=== PATIENT | male | born 1960 | race Caucasian/White ===

== ENCOUNTER 2016-09-01 17:55 | Inpatient (IN) | payer MEDICARE ==
[~2016-09-01] VITALS: Ht 172.7 cm; Wt 104.5 kg
[2016-09-01] MEDS ORDERED: NS 1,000 ML IV SCH (18:00)
[2016-09-01] MEDS ORDERED: LORazepam 2 MG/ML VIAL (J2060) IV STA ×6 (18:09→22:39)
[2016-09-01] MEDS ORDERED: ONDANSETRON 4MG/2ML VIAL (J2405) IV ONE (18:15)
[2016-09-01 18:35] LABS: BASO # 0.1 K/mm3 (0.0-0.2); BASO % 0.4 % (0.0-1.0); EOS # 0.2 K/mm3 (0.0-0.50); LARGE UNSTAINED CELL # 0.2 K/mm3 (0.0-0.4); LARGE UNSTAINED CELL % 1.4 % (0.0-4.0); LYMPH # 2.8 K/mm3 (1.5-4.5); LYMPH % 17.3 % (24.0-44.0); MEAN CORPUSCULAR HEMOGLOBIN 31.9 pg (27.0-33.0); MEAN CORPUSCULAR HGB CONC 33.4 g/dl (32.0-36.5); MEAN CORPUSCULAR VOLUME 95.6 fl (80.0-96.0); MONO # 0.9 K/mm3 (0.0-0.8); MONO % 5.4 % (0.0-5.0); NEUTROPHILS # 12.1 K/mm3 (1.8-7.7); NEUTROPHILS % 74.3 % (36.0-66.0); PLATELET COUNT, AUTOMATED 308 k/mm3 (150-450); WHITE BLOOD COUNT 16.3 K/mm3 (4.0-10.0)
[2016-09-01 19:11] LABS: ALBUMIN 4.3 GM/DL (3.2-5.2); ALBUMIN/GLOBULIN RATIO 1.26 (1.00-1.93); ALKALINE PHOSPHATASE 95 U/L (45-117); ALT/SGPT 29 U/L (12-78); ANION GAP 14 MEQ/L (8-16); AST/SGOT 17 U/L (15-37); BILIRUBIN,DIRECT 0.1 MG/DL (0.0-0.2); BILIRUBIN,TOTAL 0.5 MG/DL (0.2-1.0); BLOOD UREA NITROGEN 22 MG/DL (7-18); CALCIUM LEVEL 9.3 MG/DL (8.5-10.1); CARBON DIOXIDE LEVEL 23 MEQ/L (21-32); CHLORIDE LEVEL 107 MEQ/L (98-107); CREATININE FOR GFR 1.34 MG/DL (0.70-1.30); GLOMERULAR FILTRATION RATE 58.3 (>56); GLUCOSE, FASTING 132 MG/DL (70-105); POTASSIUM SERUM 3.6 MEQ/L (3.5-5.1); SODIUM LEVEL 144 MEQ/L (136-145); TOTAL PROTEIN 7.7 GM/DL (6.4-8.2)
[2016-09-01] MEDS ORDERED: CLON1TAB (19:12)
[2016-09-01] MEDS ORDERED: ATOR1TAB18 (19:12)
[2016-09-01] MEDS ORDERED: VERA24TASA (19:12)
[2016-09-01] MEDS ORDERED: PERC10TA17 (19:12)
[2016-09-01] MEDS ORDERED: FENT100D25 (19:12)
[2016-09-01] MEDS ORDERED: LISI40TAB (19:12)
[2016-09-01] MEDS ORDERED: METF500T (19:12)
[2016-09-01] MEDS ORDERED: PARO20TA3 (19:12)
[2016-09-01] MEDS ORDERED: OXYC10TA12 (19:12)
[2016-09-01] MEDS ORDERED: TRIA37.53 (19:12)
[2016-09-01] MEDS ORDERED: [UNRECOGNIZED DRUG - CODE] (19:12)
[2016-09-01 20:12] LABS: METHADONE URINE NEGATIVE (NEGATIVE)
[2016-09-01] MEDS ORDERED: HumaLOG INSULIN (NovoLOG) PER UNIT SC SCH (21:00)
[2016-09-01] MEDS ORDERED: PIPERACILLIN/TAZOBACTAM SOD 3.375 GM in D5W MINI-BAG PLUS 50 ML IV ONE (21:15)
[2016-09-01] MEDS ORDERED: HEPARIN SOD (PORCINE) 5000 UNITS/ML VIAL SQ SCH (22:00)
[2016-09-01] MEDS ORDERED: ACETAMINOPHEN TAB 650MG DOSE (2X325MG) PO PRN (22:45)
[2016-09-01] MEDS ORDERED: BISACODYL 5 MG TAB PO PRN (22:45)
[2016-09-01] MEDS ORDERED: LORazepam 2 MG/ML VIAL (J2060) IV PRN (22:45)
[2016-09-01] MEDS ORDERED: ONDANSETRON 4MG/2ML VIAL (J2405) IV PRN (22:45)
[2016-09-01] MEDS: HEPARIN SOD (PORCINE) 5000 UNITS/ML VIAL SC SCH (22:47)
[2016-09-01] MEDS ORDERED: GLUCOSE 4 GM CHEW TABLET PO PRN (23:30)
[2016-09-01] MEDS ORDERED: DEXTROSE 50% 50 ML SYRINGE IV PRN (23:30)
[2016-09-01] MEDS ORDERED: GLUCAGON FOR INJ 1 MG VIAL (J1610) SC PRN (23:30)
[2016-09-02] MEDS: NS 1,000 ML IV SCH ×2 (00:41→09:27)
[2016-09-02 00:51] VITALS: BP 140/81
--- NOTE | 2016-09-02 02:27 | HPE ---
DATE OF ADMISSION: 09/01/2016 PRIMARY CARE PROVIDER: Dr. Randall in [place]. ORTHOPEDICS: Dr. Buchanan in [place]. CHIEF COMPLAINT: Metabolic encephalopathy. CODE STATUS: Cannot obtain due to altered mental status. HISTORY OF PRESENT ILLNESS: Mr. Stevens is a 56-year-old male with multiple past medical history, who was brought to the emergency room (ER) due to metabolic encephalopathy as well as agitation. Due to altered mental status, patient was not able to provide history; however, the history was obtained from the patient's daughter (Meggan Stevens [phone]) and her friend (Elyssa [phone]). Patient has been using opiate pain medications for past 15 years due to bilateral ankle pain secondary to surgery. he and his daughter live in [place]. They were driving to [employer] to lease picker daughter's friend to go to baby shower. Daughter's friend expressed that when they came to pick her up, patient was awake and oriented; however, patient became more drowsy and sleepy. Patient's daughter gave him one dose of naloxone because she thought that patient overdosed his opiate medication. An hour and 30 minutes After taking naloxone patient is started to have agitation and altered mental status and when they stopped in a gas station, patient went to the bathroom and had two episodes of vomiting and that was the time that the daughter called emergency medical driver (EMT). They also noticed that when patient was walking back towards the car he had another episode of vomiting which contained undigested food however did not see abnormal color or blood. Patient laid down on the ground and that was the time that EMT found him. They checked the glucose level and it was 134 and patient was brought to the emergency department (ED). At the ED, patient had urine oxycodone she done which was positive for opiates. Poison control was consulted who recommended continuation of benzodiazepine usage for agitation. Patient received a total of 6 mg of Ativan at the ER. ALLERGIES: No known drug allergies. PAST MEDICAL HISTORY: 1. Diabetes mellitus type 2. 2. Hypertension. 3. Bilateral ankle fracture. 4. Tonsillitis. 5. Hypercholesterolemia. 6. Hypertension. 7. Obesity. PAST SURGICAL HISTORY: 1. Bilateral ankle repair with hardware 15 years ago. 2. Tonsillectomy. HOME MEDICATIONS: - atorvastatin calcium 40 mg daily - clonazepam 1 mg twice a day as needed for agitation - fentanyl 100 mcg every 72 hours - hydrochlorothiazide with triamterene one capsule daily - lisinopril 40 mg daily - metformin 1000 mg twice a day - oxycodone 30 mg twice a day - oxycodone/acetaminophen 10 mg twice a day - oxymorphone HCL 30 mg twice a day - paroxetine 20 mg daily - verapamil 240 mg daily FAMILY HISTORY: According to his daughter, she is only child of him and she is healthy. Patient has two brothers and four sisters. One of the brothers due to lung cancer. Patient's father due to lung cancer. He was a smoker. Patient's mother due to heart disease. SOCIAL HISTORY: Patient smokes cigarettes, about a pack a day, since age 13; however, according to the daughter, patient is trying to cut back on his smoking. Patient has not drank alcohol for the past 15 years; however, before that patient was drinking occasionally. Patient did not have history of illicit drug use; however, patient has been on chronic opiate medication. Patient has not traveled outside of the [place]. REVIEW OF SYSTEMS: Cannot be obtained due to patient's altered mental status. PHYSICAL EXAMINATION: VITAL SIGNS: Temperature 97.8, pulse 99, respiratory rate 20, blood pressure 136/97, pulse oximetry 100 on room air. GENERAL APPEARANCE: Patient is agitated and altered mental status. Rest of the physical examination cannot be performed due to patient's agitation and altered mental status. LABORATORY DATA: White blood cells 16.3, red blood cells 4.78, hemoglobin 15.2, hematocrit 45.6, MCV 95.6, MCH 31.9, MCHC 33.4, RDW 13, platelet count 308. Neutrophil percentage 74.3, lymphocyte percentage 17.3, monocyte percentage 5.4, eosinophil percentage 1, basophil percentage 0.4, leukocyte percentage 1.4. Sodium 144, potassium 3.6, chloride 107, carbon dioxide 23, anion gap 14, BUN 22 , creatinine 1.34, glomerular filtration rate 58.3, fasting glucose 132, calcium 9.3, total bilirubin 0.5, direct bilirubin 0.1, AST 17, ALT 29, alkaline phosphatase 95, total creatinine 121, CK-MB 101, CK-MB relative index 0.9, troponin less than 0.02, total protein 7.7, albumin 4.3, TSH 0.693. Urine: Urine color yellow, urine appearance clear, urine pH 5, urine specific gravity 1.017, urine protein negative, urine glucose negative, urine ketones trace, urine blood negative, urine nitrites negative, urine bilirubin negative, urine urobilinogen 0.2, urine leukocyte esterase negative, urine white blood cells 0, urine red blood cells 0, urine hyaline casts 0, urine bacteria 1+, urine squamous epithelial cells 0. Urine toxicology: Salicylates 2, urine opiate screen positive, and ethyl alcohol 0.003, urine cannabis screen negative, urine cocaine methamphetamine screen negative, urine benzodiazepine screen negative, urine amphetamine screen negative, urine phencyclidine screen negative, urine barbiturate screen negative. IMAGING: Chest x-ray is pending at this time. ASSESSMENT AND PLAN: 1. Metabolic encephalopathy. This is possibly acute withdrawal secondary to chronic use of opiate medications and the dose of Narcan which patient received from his daughter. Poison Control has been consulted, who recommended using benzodiazepines for agitation. Therefore, I have started patient on Ativan 1 mg intravenously (IV) every 2 hours as needed for anxiety and agitation. Also I have ordered sitter in the room. I have stopped all the his opiate medications (fentanyl, oxycodone, Percocet, oxymorphone). Also, since patient is lethargic, I made the patient nothing by mouth to prevent aspiration. due to diabetes, we will continue monitoring fingersticks every 6 hours. patient is on IV fluid. 2. Diabetes. At home, patient is on metformin 1000 mg by mouth twice a day. However, I have stopped it. Patient is on a sliding scale and we are checking fingersticks every 6 hours. 3. Acute kidney injury. This is possibly due to dehydration secondary to vomiting. I have a started patient on normal saline IV fluid. We will check the renal function again in the morning. Also I stopped lisinopril and hydrochlorothiazide due to abnormal renal function. 4. Hypercholesterolemia. I will continue patient on current dosage of statin (Lipitor 40 mg by mouth daily). 5. Hypertension. At home, patient is on lisinopril 40 mg by mouth daily, as well as triamterene/hydrochlorothiazide 37.5/25 mg by mouth daily; however, due to acute kidney failure, I have stopped these two medications and we will continue monitoring patient's blood pressure. Patient is also on verapamil 240 mg by mouth daily, which we will continue. 6. Deep venous thrombosis (DVT) prophylaxis. Patient is on heparin 5000 units subcutaneously every 8 hours. 7. Depression and anxiety. We will continue patient on Paxil 20 mg by mouth daily. also at home, he is on clonazepam for anxiety and depression 1 mg twice a day as needed for anxiety; however, I have stopped this medication and patient at this time is on Ativan 1 mg by mouth every 2 hours as needed for anxiety and depression. My preceptor for this patient encounter was Dr. Zhanna Garcia. The preceptor was physically present in the building during the encounter and was fully available as needed. All aspects of the patient interview, examination, medical decision making process, and medical care plan development were reviewed and approved by the preceptor. The preceptor is aware and concurs with the plan as stated in the body of this note and will attest to such by his/her co-signature. NESS
[2016-09-02 04:00] VITALS: BP 130/97
[2016-09-02 05:54] LABS: MEAN CORPUSCULAR HEMOGLOBIN 31.6 pg (27.0-33.0); MEAN CORPUSCULAR HGB CONC 33.6 g/dl (32.0-36.5); MEAN CORPUSCULAR VOLUME 93.9 fl (80.0-96.0); WHITE BLOOD COUNT 12.6 K/mm3 (4.0-10.0)
[2016-09-02 06:15] LABS: ALBUMIN 3.7 GM/DL (3.2-5.2); ALBUMIN/GLOBULIN RATIO 1.09 (1.00-1.93); ALKALINE PHOSPHATASE 78 U/L (45-117); ALT/SGPT 27 U/L (12-78); ANION GAP 10 MEQ/L (8-16); AST/SGOT 22 U/L (15-37); BILIRUBIN,TOTAL 0.7 MG/DL (0.2-1.0); BLOOD UREA NITROGEN 19 MG/DL (7-18); CALCIUM LEVEL 8.8 MG/DL (8.5-10.1); CARBON DIOXIDE LEVEL 24 MEQ/L (21-32); CHLORIDE LEVEL 111 MEQ/L (98-107); CREATININE FOR GFR 1.17 MG/DL (0.70-1.30); GLOMERULAR FILTRATION RATE > 60.0 (>56); GLUCOSE, FASTING 170 MG/DL (70-105); POTASSIUM SERUM 3.1 MEQ/L (3.5-5.1); SODIUM LEVEL 145 MEQ/L (136-145); TOTAL PROTEIN 7.1 GM/DL (6.4-8.2)
[2016-09-02] MEDS: HEPARIN SOD (PORCINE) 5000 UNITS/ML VIAL SC SCH ×2 (06:29→13:46)
[2016-09-02 08:00] VITALS: BP 145/76
[2016-09-02] MEDS ORDERED: ATORVASTATIN 20 MG TAB PO SCH (09:00)
[2016-09-02] MEDS ORDERED: DYAZIDE 37.5/25 CAP (TRIAM/HCTZ) PO SCH (09:00)
[2016-09-02] MEDS ORDERED: LISINOPRIL 20 MG TAB PO SCH (09:00)
[2016-09-02] MEDS ORDERED: VERAPAMIL 120 MG SR TAB PO SCH (09:00)
[2016-09-02] MEDS ORDERED: PARoxetine 20 MG TAB PO SCH (09:00)
[2016-09-02] MEDS ORDERED: LISINOPRIL 40 MG TAB PO SCH (09:00)
[2016-09-02] MEDS: HumaLOG INSULIN (NovoLOG) PER UNIT SC SCH ×2 (09:22→12:33)
[2016-09-02] MEDS ORDERED: PERCOCET 5MG/325MG TAB PO PRN ×2 (10:30)
[2016-09-02] MEDS ORDERED: POTASSIUM CHLORIDE 10 MEQ SR TABLET PO ONE (10:30)
--- NOTE | 2016-09-02 10:59 | IPN ---
DATE: 09/02/2016 HISTORY: Darrell Stevens is from out of town. No primary care provider locally. I think he lives in [place], [place]. In any case, he is up visiting his daughter. He has been on chronic narcotic therapy for a long time for chronic pain in an ankle. His daughter apparently gave him a dose of naltrexone in an attempt to detoxify him of these, and he went through acute withdrawal and was admitted. Today, he feels groggy (he got seven doses of Ativan since admission) but otherwise is alert and conversant and feels like he is much better than yesterday. Blood pressure 145/76, pulse of 86, 90% oxygen saturation on room air. General Appearance: He is alert, conversant, in no distress. Lungs: Clear. Heart: Regular rhythm. Abdomen: Soft, nontender. Normal strength in the arms and legs, normal coordination. Mental status exam shows that he is oriented times three and answers are goal directed and appropriate. LABORATORY: Potassium 3.1, creatinine down to 1.1. CK is 530. White count 12.6, hemoglobin 13.4. Chest x-ray looks unremarkable to me. IMPRESSION: Acute altered mental status/metabolic encephalopathy secondary to enforced opiate withdrawal from naltrexone. PLAN: 1. He is recovering from the acute withdrawal. I think that explains his leukocytosis, altered mental status and other findings. He is feeling more like himself today. He is groggy (six doses of Ativan) but feels he is able to eat and get out of bed. He will need to restart his pain medications. 2. Chronic pain medication/chronic opiate therapy. Went through abrupt withdrawal when he was given Narcan by his daughter. I advised him against doing this in the future. He has chronic pain problems with his ankle and should he ever want to try to wean off his pain medicines, this needs to be done under medical supervision and not under the auspices of a family member. 3. Will restart some of his pain medications this morning. Hold off on the Fentanyl patch for now until his mental status clears more. 4. Leukocytosis. He is on Zosyn. I do not know why. His white count can certainly be attributed to his opiate withdrawal syndrome. His chest x-ray looks unremarkable by independent review. I am stopping his antibiotics. I do not think the potential side effects are worth the benefit without an obvious source of infection. 5. Hypertension. Blood pressure is in good control. I will restart his lisinopril. 6. Acute kidney injury. Creatinine is back to normal with hydration. 7. Hypokalemia. Supplemental potassium given. He will get out of bed today and have breakfast, lunch and if he feels better this afternoon, he could be discharged. Discussed this with his nurse.
[2016-09-02 11:29] VITALS: BP 145/76
[2016-09-02 12:00] VITALS: BP 191/97
--- NOTE | 2016-09-02 12:25 | REP ---
CHEST, ONE VIEW: HISTORY: Dyspnea. COMPARISON: None. The technique utilized in obtaining the radiograph has magnified the cardiac silhouette and accentuated the interstitial markings. Possible patchy left lower lobe opacity. The exam is markedly limited. There are no other suspicious findings. IMPRESSION: Markedly limited portable exam. Possible left lower lobe opacity. Signed by Octavio Márquez DO 09/02/2016 01:32 P
[2016-09-02] MEDS ORDERED: POTASSIUM CHLORIDE 10 MEQ SR TABLET PO SCH (21:00)
--- NOTE | 2016-09-03 09:48 | DSES ---
DATE OF ADMISSION: 09/01/2016 DATE OF DISCHARGE: 09/02/2016 PRINCIPAL DIAGNOSIS: Metabolic encephalopathy secondary to acute narcotic withdrawal precipitated by Narcan. SECONDARY DIAGNOSES: 1. Chronic pain syndromes. 2. Leukocytosis - reactive. 3. Hypertension. 4. Acute kidney injury. 5. Hypokalemia. 6. Positive blood culture 1 out of 2 - contaminant. Mr. Darrell Stevens was admitted after being a dose of Narcan by his daughter in an attempt to detoxify him from the opiates he has been on for a decade for chronic pain problems. He presented with acute narcotic withdrawal. HOSPITAL COURSE: He was admitted to a progressive care unit (PCU) bed. He got seven doses of Ativan as he went through this withdrawal. At the time I rounded on him, he was returning to his baseline mental status, was getting out of bed and wanted to leave the hospital. He was oriented times three and was no longer experiencing any effects with withdrawal. We replaced his potassium. He had a white count elevation on admission without evidence of bacterial infection. He was given some Zosyn, which I discontinued. Second CBC showed a trend towards normalizing of his white count. He had two blood cultures drawn on admission, one was negative, one was positive for what appears to be skin contaminants per discussion today with bacteriology. Patient ate lunch, walked the halls and felt back to himself. He wanted to leave the hospital. I thought it was appropriate to do that. I did not see any evidence of bacterial infection. I felt like he had gotten over the worse parts of his opiate withdrawal. He was discharged home on the same medicines he was taking prior to admission. Followup with his primary care provider within a week. Activity as tolerated, and advised to follow Dietary Approaches to Stop Hypertension (DASH) diet.
--- NOTE | 2016-09-03 14:38 | ECGEPIP ---
Stationary ECG Study [facility] - ED Test Date: 2016-09-01 Pat Name: CLARITA MONCADA Department: Room: [place] [address] Gender: M Environmental Quality Analyst: : 1960 Requested By: GEORGINA Segundo Order Number: [id number] Reading MD: Bailey Walls Measurements Intervals [place] Rate: 90 P: 61 [place]: 154 QRS: 54 QRSD: 102 T: 60 QT: 367 QTc: 450 Interpretive Statements SINUS RHYTHM POSSIBLE INFERIOR MYOCARDIAL INFARCTION, PROBABLY OLD WITH POSTERIOR EXTENSION BASELINE ARTIFACT LIMITS INTERPRETATION NO PRIOR FOR COMPARISON Electronically Signed On 09-03-2016 14:38:27 EDT by Bailey Walls
== END 2016-09-02 16:13 | disposition home or self-care (01) | DRG 896 ==
LOC: EDBD 17:55 → M ED 18:49 → M ED INP 23:37 → M PCU 09-02 00:36
PROVIDERS: ADMIT Internal Medicine; ATTEND Family Medicine
DX: F11.23 Opioid dependence with withdrawal (principal); G93.41 Metabolic encephalopathy; N17.9 Acute kidney failure, unspecified; E11.9 Type 2 diabetes mellitus without complications; I10 Essential (primary) hypertension; E78.00 Pure hypercholesterolemia, unspecified; E87.6 Hypokalemia; E66.9 Obesity, unspecified; G89.4 Chronic pain syndrome; F17.210 Nicotine dependence, cigarettes, uncomplicated; E86.0 Dehydration; F41.9 Anxiety disorder, unspecified; F32.9 Major depressive disorder, single episode, unspecified; Z79.4 Long term (current) use of insulin; Z79.899 Other long term (current) drug therapy